=== PATIENT | female | born 1945 | race Caucasian/White ===

== ENCOUNTER → 2019-09-09 | Emergency (ER) | payer OTHER, BC ==
[~2019-09-09] VITALS: Ht 157.5 cm; Wt 77.1 kg
== END | disposition left against medical advice (07) ==
LOC: ER 15:27
DX: S72.8X2A Other fracture of left femur, initial encounter for closed fracture (principal); W18.09XA Striking against other object with subsequent fall, initial encounter; Y93.89 Activity, other specified; Y92.814 Boat as the place of occurrence of the external cause; Y99.8 Other external cause status